=== PATIENT | female | born 2000 | race Caucasian/White ===

== ENCOUNTER → 2022-10-11 18:31 | Outpatient (CLI) | payer OTHER, SELFPAY ==
--- NOTE | 2022-10-11 | DI.MRI.S_ITS ---
PROCEDURE: MR KNEE LT WO CON INDICATIONS: Pain in left knee TECHNIQUE: Noncontrast sagittal PD fast spin echo and T2 fast spin echo with fat saturation, sagittal 3-D FLASH with fat saturation; coronal T1 spin echo and PD fast spin echo with fat saturation, and axial PD fast spin echo with fat saturation through the knee. COMPARISON: None. FINDINGS: Image quality: Excellent. Menisci: Subtle oblique tear involving posterior horn of medial meniscus is seen extending to inferior articulating surface. The lateral meniscus is intact. The meniscal root ligaments appear intact. Cruciate ligaments: The anterior and posterior cruciate ligaments appear intact. Medial structures: The medial collateral ligament appears mildly thickened. The posterior oblique ligament, semimembranosus tendon insertions, oblique popliteal ligament, and meniscocapsular junction appear intact. Visualized portions of the pes anserinus tendons appear normal. No abnormal bursal fluid. Lateral structures: The lateral collateral ligament, long and short heads of the biceps femoris tendon appear intact. The popliteus tendon appears normal; the popliteofibular ligament appears intact. Iliotibial band appears normal. Anterior structures: The quadriceps and patellar tendons appear intact. Patellar alignment is normal. No femoral trochlear dysplasia or ventral trochlear prominence. No edema in the infrapatellar fat pad. Bones and cartilage: No bone marrow contusions or fractures. The cartilage of the medial and lateral femorotibial compartments, as well as the patellofemoral compartment, appears normal in thickness. Joint space: There is small to moderate knee joint fluid. There is a 1.6 x 1.5 x 4.5 cm East's cyst. Normal appearing synovial plicae are incidentally noted. IMPRESSION: 1. Possible very subtle oblique tear involving posterior horn of medial meniscus extending to inferior articulating surface. No evidence of lateral meniscal tear. 2. Low-grade MCL sprain. The cruciate ligaments are intact. 3. No marrow edema. No fracture or dislocation. Articulating cartilages are intact. 4. Small to moderate joint effusion and a small East's cyst. No gross loose bodies. Dictated by: Chidi Manrique M.D. on 10/12/2022 at 8:10 Approved by: Chidi Manrique M.D. on 10/12/2022 at 8:15
== END ==
PROVIDERS: Referring Provider Student in an Organized Health Care Education/Training Program; Visit Provider Student in an Organized Health Care Education/Training Program
DX: S83.412A Sprain of medial collateral ligament of left knee, initial encounter (principal); M25.562 Pain in left knee; M25.462 Effusion, left knee; M71.21 Synovial cyst of popliteal space [Baker], right knee
CPT/HCPCS: 73721